=== PATIENT | male | born 1975 | race Caucasian/White ===

== ENCOUNTER 2017-11-16 14:21 | Emergency (ER) | payer SELFPAY ==
[~2017-11-16] VITALS: Ht 180.3 cm; Wt 76.0 kg
[2017-11-16 14:28] VITALS: BP 141/87; PULSE 78; RESP 16; TEMP 98.9; O2SAT 96
[2017-11-16] MEDS ORDERED: ONDANSETRON HCL 4 MG/2 ML VIAL IM ONE (15:00)
[2017-11-16] MEDS ORDERED: MORPHINE SULFATE 2 MG/ML INJ IM ONE (15:00)
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
[2017-11-16] MEDS ORDERED: PERC5TAB12 PO (17:04)
[2017-11-16] MEDS ORDERED: IBUP-232 PO (17:04)
[2017-11-16] MEDS ORDERED: ACETAMINOPHEN/HYDROcodone 325 MG/5 MG TAB PO ONE (17:15)
[2017-11-16 17:41] VITALS: BP 138/76; PULSE 77; RESP 19; O2SAT 100
[2017-11-17] MEDS ORDERED: PERC5TAB12 PO (10:15)
[2017-11-17] MEDS ORDERED: IBUP-232 PO (10:15)
== END 2017-11-16 17:43 | disposition home or self-care (01) ==
LOC: NEPC 14:21
DX: S22.41XA Multiple fractures of ribs, right side, initial encounter for closed fracture (principal); S02.2XXA Fracture of nasal bones, initial encounter for closed fracture; S42.001A Fracture of unspecified part of right clavicle, initial encounter for closed fracture; Y04.0XXA Assault by unarmed brawl or fight, initial encounter; Z72.0 Tobacco use
CPT/HCPCS: 70450; 70486; 71101; 72125; 73060; 73090; 96372; 99285; J2270; J2405

== ENCOUNTER 2017-11-17 08:47 | Emergency (ER) | payer SELFPAY ==
[~2017-11-17] VITALS: Ht 180.3 cm; Wt 76.0 kg
[~2017-11-17 08:47] MED LIST: IBUP-232 PO; PERC5TAB12 PO
[2017-11-17 09:01] VITALS: BP 136/85; PULSE 104; RESP 18; TEMP 99.1; O2SAT 94
[2017-11-17] MEDS ORDERED: PERC5TAB12 PO (10:15)
[2017-11-17] MEDS ORDERED: IBUP-232 PO (10:15)
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
== END 2017-11-17 10:41 | disposition home or self-care (01) ==
LOC: NEPD 08:47
DX: S42.024D Nondisplaced fracture of shaft of right clavicle, subsequent encounter for fracture with routine healing (principal); S22.41XD Multiple fractures of ribs, right side, subsequent encounter for fracture with routine healing; F17.200 Nicotine dependence, unspecified, uncomplicated; R00.0 Tachycardia, unspecified; Z59.0 Homelessness; X58.XXXD Exposure to other specified factors, subsequent encounter
CPT/HCPCS: 99283